=== PATIENT | male | born 1995 | race Caucasian/White ===

== ENCOUNTER → 2016-08-29 | Outpatient (CLI) | payer BC, OTHER ==
[~2016-08-29] MED LIST: CEPH500C2 PO; IBUP-1050 PO
== END | disposition home or self-care (01) ==
LOC: C.RDSM 13:58
PROVIDERS: ATTEND Orthopaedic Surgery Sports Medicine
DX: M79.644 Pain in right finger(s) (principal)

== ENCOUNTER → 2016-09-10 | Outpatient (CLI) | payer BC, OTHER | END | disposition home or self-care (01) | LOC: C.RDSM 15:19 | PROVIDERS: ATTEND Orthopaedic Surgery Sports Medicine | DX: S62.501A Fracture of unspecified phalanx of right thumb, initial encounter for closed fracture (principal); X58.XXXA Exposure to other specified factors, initial encounter ==

== ENCOUNTER → 2016-12-09 | Outpatient (CLI) | payer BC, OTHER | END | disposition home or self-care (01) | LOC: C.RDSM 12:29 | PROVIDERS: ATTEND Orthopaedic Surgery Sports Medicine | DX: S62.524D Nondisplaced fracture of distal phalanx of right thumb, subsequent encounter for fracture with routine healing (principal); X58.XXXD Exposure to other specified factors, subsequent encounter ==

== ENCOUNTER 2016-12-31 18:52 | Emergency (ER) | payer BC, OTHER ==
[~2016-12-31] VITALS: Ht 188 cm; Wt 101.7 kg
[~2016-12-31 18:52] MED LIST changes: -CEPH500C2 PO
[2016-12-31 19:05] VITALS: TEMP 36.7; Ht 188 cm; Wt 101.7 kg
[2016-12-31] MEDS ORDERED: XYLOCAINE 1%/SOD BICARB 20 ML VIAL INFIL ONE (20:15)
[2016-12-31] MEDS ORDERED: CEPH500C2 PO (20:42)
[2016-12-31] MEDS ORDERED: CEPHALEXIN 500MG HOME PACK 1 EA BTL PO ONE (20:45)
[2016-12-31 21:17] VITALS: BP 143/86; PULSE 56; O2SAT 99
--- NOTE | 2017-01-01 01:47 | EMERGENCY ROOM VISIT NOTE ---
ED Visit Note First contact with patient: 19:24 CHIEF COMPLAINT: I have a swollen gland on my elbow and that needs to be drained. HISTORY OF PRESENT ILLNESS: Mr. Choi is an 21-year-old white male who ambulates into the ED and planing of a cystic lesion in the gluteal fold. Historically patient reports he has a pilonidal abscess that has been drained once a year for the last 3 years. He reports 2 days ago he noted return of swelling and tenderness in the area of his abscess. Since that time the symptoms have been constant. He feels like this area is getting larger and slightly more tender. He denies any recent injuries to this area. Currently he describes his discomfort as only tenderness but has no be pain in the area. He does report he squeezed this area and was able to express a little bit of blood from the area. He has not taken any medications for his symptoms. He denies any associated symptoms including fevers, chills, sweats, other skin eruptions, abdominal pain, nausea, vomiting, decreased appetite. REVIEW OF SYSTEMS: As previously noted in HISTORY OF PRESENT ILLNESS; 8 body systems were reviewed with the patient and found to be negative unless noted above otherwise. PAST MEDICAL HISTORY: As noted above, status post unspecified shoulder surgery. CURRENT MEDICATION: Patient denies denies. ALLERGIES TO MEDICATION: Patient denies. SOCIAL HISTORY: Patient is currently University student at [employer]; he feels safe in his home environment; he denies tobacco use and admits to alcohol use. PHYSICAL EXAM: Vital Signs: Date Time Temp Pulse Resp B/P (MAP) Pulse Ox O2 Delivery O2 Flow Rate FiO2 12/31/16 21:17 56 143/86 99 12/31/16 19:05 36.7 68 18 119/74 98 Room Air General: 21 year-old male in no acute distress, nontoxic appearing, afebrile and hemodynamically stable. Neurological: Awake, alert and oriented to person, place and time. Answering questions appropriately and following commands. Skin: Warm, dry and pink. Over the top of the right gluteal fold there is a small area that is indurated measuring approximately 1 cm in diameter. It is minimally fluctuant without pointing. There is no drainage from the wound but is obviously been expressed because there is a small amount of blood on the external portion of the wound. Additionally there is a small flap of skin over the lateral border of the lesion. There is no lymphangitis but mild inflammation around the lesion. Thorax: Lungs sounds are clear to auscultation and equal bilaterally with symmetrical chest wall movement. Abdomen: Flat, soft and nontender. Positive bowel sounds in all quadrants. No guarding or rigidity. ED COURSE: Patient is assessed as noted above. Incision and Drainage: Verbal consent was obtained after the risks and benefits were explained. The skin was prepped with betadine and a sterile field set. The area surrounding the abscess was anesthetized with 5.2 ml of 1% buffered lidocaine. The abscess cavity was incised with a scalpel. Approximately less than 1 mL of purulent material was drained from the abscess and no additional material was able to be expressed I was not able to capture a culture for testing. The abscess cavity was sharply dissected with iris scissors to break up loculations and no additional material was expressed. The small flap of skin that was over the lateral border was excised with iris scissors. Copious irrigation was performed using sterile saline. The abscess cavity was cleaned out. Hemostasis was achieved. Iodoform gauze packing was inserted into the abscess. A sterile dressing was applied. No complications and the patient tolerated the procedure well. Patient was educated about his condition and instructed on his treatment plan; they verbalized understanding and agreement with this plan. CLINICAL IMPRESSION: Pilonidal abscess. DISPOSITION: Patient discharged to home in stable condition my: Prior to departure he was reassessed and subjectively reported that he was pain-free. PLAN: Patient was encouraged use ibuprofen or acetaminophen as needed for pain. Patient was prescribed Keflex 500 mg 4 times a day for 10 days. Patient was encouraged to follow-up at [facility] or return to the ED for recheck and packing removal and 36-48 hours. Patient was encouraged return ED for increasing pain, increasing redness outside his bandage line, red streaking, fevers or any new/concerning symptoms.
== END 2016-12-31 20:55 | disposition home or self-care (01) ==
LOC: C.EDB 18:53 → C.EDD 20:55
DX: L05.91 Pilonidal cyst without abscess (principal)

== ENCOUNTER → 2017-02-28 | Outpatient (CLI) | payer BC ==
--- NOTE | 2017-02-28 16:55 | DIAGNOSTIC IMAGING REPORT ---
L WRIST MIN 3 VIEWS ROUTINE CLINICAL HISTORY: 22 years-old Male presenting with LEFT HAND AND WRIST INJURY FROM RIGHT BE. TECHNIQUE: Frontal, oblique, scaphoid, and lateral views of the left wrist were obtained. COMPARISON: None. FINDINGS: No acute fracture or malalignment. Radiocarpal, intercarpal, and carpometacarpal articulations intact. Specifically no scaphoid fracture. No radiographic soft tissue abnormality. IMPRESSION: No acute osseous injury of the left wrist. Electronically signed by: Ariel Yancey M.D. 02/28/2017 4:54 PM Dictated Date/Time: 02/28/2017 4:53 PM
--- NOTE | 2017-02-28 17:00 | DIAGNOSTIC IMAGING REPORT ---
L HAND MIN 3 VIEWS HISTORY: 22 years-old Male LEFT HAND AND WRIST INJURIES acute left hand pain status post injury COMPARISON: Left wrist radiographs of same day TECHNIQUE: 3 views of the left hand FINDINGS: There is no acute fracture, dislocation or significant degenerative changes. There is mild dorsal soft tissue swelling at the level of the metacarpals. No opaque foreign body. IMPRESSION: Mild dorsal hand soft tissue swelling without acute fracture or dislocation. The above report was generated using voice recognition software. It may contain grammatical, syntax or spelling errors. Electronically signed by: Pradip Fritz M.D. 02/28/2017 4:59 PM Dictated Date/Time: 02/28/2017 4:58 PM
== END | disposition home or self-care (01) ==
LOC: C.RDSM 16:39
PROVIDERS: ATTEND Family Medicine
DX: M25.532 Pain in left wrist (principal); M79.642 Pain in left hand